=== PATIENT | female | born 1950 | race Caucasian/White ===

== ENCOUNTER → 2016-11-06 | Outpatient (CLI) | payer MEDICARE, OTHER | LOC: RAD 10:35 | PROVIDERS: ATTEND Internal Medicine Medical Oncology | DX: C34.90 Malignant neoplasm of unspecified part of unspecified bronchus or lung (principal) | CPT/HCPCS: 78815; A9552 ==

== ENCOUNTER → 2017-01-15 | Outpatient (CLI) | payer MEDICARE, OTHER ==
--- NOTE | 2017-01-15 16:03 | RADIOLOGY REPORT (SQ) ---
EXAM DESCRIPTION: CT CHEST WITH COMPLETED DATE/TIME: 01/15/2017 2:19 pm REASON FOR STUDY: LUNG CA C34.90 MALIGNANT NEOPLASM OF UNSP PART OF UNSP BRONCHUS OR L COMPARISON: 02/14/2014 TECHNIQUE: CT scan of the chest performed using helical scanning technique with dynamic intravenous contrast injection. Images reviewed with lung, soft tissue and bone windows. Reconstructed coronal and sagittal MPR images reviewed. All images stored on PACS. All CT scanners at this facility use dose modulation, iterative reconstruction, and/or weight based d osing when appropriate to reduce radiation dose to as low as reasonably achievable (ALARA). [facility]: Dose Right [facility]: CareDose [facility]: Dose Right [facility]: Teradose 4D [facility]: Periscope CONTRAST TYPE AND DOSE: 80mL Isovue 370- low osmolar. RENAL FUNCTION: Not given. RADIATION DOSE: 3.47 mGy. LIMITATIONS: None. FINDINGS: LUNGS AND PLEURA: No opacities, nodules, masses. No pneumothorax. No effusions. HILAR AND MEDIASTINAL STRUCTURES: No identified masses or abnormal nodes. HEART AND VASCULAR STRUCTURES: No aneurysm or dissection. No central pulmonary emboli. Aortic and c oronary atherosclerosis is mild to moderate. HARDWARE: None in the chest. UPPER ABDOMEN: A large gallstone is seen on image 69. THYROID AND OTHER SOFT TISSUES: No masses. No adenopathy. BONES: No significant finding. OTHER: No other significant finding. IMPRESSION: 1. There is no evidence of malignancy in the chest. 2. There is cholelithiasis. TECHNICAL DOCUMENTATION: JOB ID: [id number] Quality ID # [id number]: Final reports with documentation of one or more dose reduction techniques (e.g., Au tomated exposure control, adjustment of the mA and/or kV according to patient size, use of iterative reconstruction technique) 2010 [employer]- All Rights Reserved
== END ==
LOC: RAD 13:44
PROVIDERS: ATTEND Internal Medicine Medical Oncology
DX: C34.90 Malignant neoplasm of unspecified part of unspecified bronchus or lung (principal)
CPT/HCPCS: 71260

== ENCOUNTER 2017-06-22 10:57 | Emergency (ER) | payer MEDICARE, OTHER ==
--- NOTE | 2017-06-22 11:20 | ER Document Report ---
ED Fall - General Mode of Arrival: Medic Information source: Patient TRAVEL OUTSIDE OF THE [place] IN LAST 30 DAYS: No - HPI Patient complains to provider of: Weakness and Fall Occurred: Just prior to arrival Where: Home Context: Fell from standing Location of injury/pain: Other - see notes above <FERNANDO SHEA - Last Filed: 06/22/17 11:14> <JE SHULTZ - Last Filed: 06/22/17 16:25> - General Chief Complaint: Weakness Stated Complaint: WEAKNESS Time Seen by Provider: 06/22/17 11:03 Notes: 66 year old female with history of basal cell carcinoma and lung cancer presents to the ED complaining of weakness to the bilateral lower extremities and subsequently falling just prior to arrival. Patient reports that she was going to take the trash out when she suddenly became out of breath and fell to the ground injuring her nose. Patient had extreme difficulty pulling herself onto the couch and was unable to walk secondary to the weakness. Patient additionally reports difficulty with getting her words out. Patient denies dizziness, chest pain, headache, current shortness of breath, diarrhea, or difficulty breathing through her nose. Patient recently started a chemotherapy drug and an antidepressant 3 days ago and is concerned that she may be having a side effect of her antidepressant drug. Oncologist: Dr. Bonilla. (FERNANDO SHEA) - Related data Allergies/Adverse Reactions: codeine [Codeine] Allergy (Verified 06/22/17 14:06) Past Medical History - General Information source: Patient - Social History Smoking Status: Former Smoker Chew tobacco use (# tins/day): No Frequency of alcohol use: Occasional Drug Abuse: None Family History: None - Past Medical History Cardiac Medical History: Reports: Hx Heart Attack - 2010 Pulmonary Medical History: Reports: Hx Asthma Malignancy Medical History: Reports: Hx Lung Cancer, Hx Skin Cancer - basal cell - Immunizations Hx Diphtheria, Pertussis, Tetanus Vaccination: No <FERNANDO SHEA - Last Filed: 06/22/17 11:14> Review of Systems - Review of Systems Constitutional: No symptoms reported EENT: No symptoms reported Cardiovascular: No symptoms reported. denies: Chest pain, Dizziness Respiratory: See HPI, Short of breath Gastrointestinal: No symptoms reported. denies: Diarrhea Genitourinary: No symptoms reported Female Genitourinary: No symptoms reported Musculoskeletal: No symptoms reported Skin: No symptoms reported Hematologic/Lymphatic: No symptoms reported Neurological/Psychological: See HPI, Weakness, Speech impairment. denies: Headaches -: Yes All other systems reviewed and negative <FERNANDO SHEA - Last Filed: 06/22/17 11:14> Physical Exam <FERNANDO SHEA - Last Filed: 06/22/17 11:14> <JE SHULTZ - Last Filed: 06/22/17 16:25> - Vital signs Vitals: Pulse Resp BP Pulse Ox 80 16 125/76 96 06/22/17 11:16 06/22/17 11:16 06/22/17 11:16 06/22/17 11:16 - Notes Notes: GENERAL: Alert, interacts well. No acute distress. HEAD: See ENT below. EYES: Pupils equal, round, and reactive to light. Extraocular movements intact. ENT: Oral mucosa moist, tongue midline. Scaring to the left side of the nose consistent with basal cell carcinoma. Superficial abrasion over top. NECK: Full range of motion. Supple. Trachea midline. LUNGS: Clear to auscultation bilaterally, no wheezes, rales, or rhonchi. No respiratory distress. HEART: Regular rate and rhythm. No gallops or rubs. 2/6 systolic murmur. ABDOMEN: Soft. Non-distended. Tenderness to palpation over the RLQ. EXTREMITIES: Moves all 4 extremities spontaneously. No edema, radial and dorsalis pedis pulses 2/4 bilaterally. No cyanosis. Patient is able to ambulate , but is a little unsteady. Able to raise bilateral legs with no difficulty. NEUROLOGICAL: Alert and oriented x3. Normal speech. 5/5 tank setter strength. PSYCH: Normal affect, normal mood. SKIN: Warm, dry, normal turgor. See ENT above. (FERNANDO SHEA) Course <FERNANDO SHEA - Last Filed: 06/22/17 11:14> - Laboratory Result Diagrams: 06/22/17 12:40 06/22/17 12:40 <JE SHULTZ - Last Filed: 06/22/17 16:25> - Re-evaluation Re-evalutation: 06/22/17 15:01 CBC unremarkable, coags normal, CMP grossly unremarkable, cardiac enzymes negative, urinalysis shows moderate blood with 30 WBCs, chest x-ray and head CT do not show any acute process. EKG is nonischemic. Initially patient was slightly unsteady but this rapidly cleared, she has been able to walk back and forth to the bathroom without difficulty. Patient feels much better. On arrival patient's NIH stroke scale was 0. Symptoms of temporary difficulty speaking without any true slurring and no focal weakness not consistent with stroke or TIA. Patient will be discharged home with antibiotics for her urinary tract infection. (JE SHULTZ) - Vital Signs Vital signs: Temp Pulse Resp BP Pulse Ox 97.9 F 69 16 125/77 97 06/22/17 15:52 06/22/17 15:52 06/22/17 15:52 06/22/17 15:52 06/22/17 15:52 - Laboratory Laboratory results interpreted by me: 06/22/17 06/22/17 06/22/17 12:40 12:40 14:04 Hgb 15.6 H Seg Neutrophils % 80.0 H Lymphocytes % 12.2 L Chloride 108 H Est GFR (Non-Af Amer) 53 L Ur Leukocyte Esterase MODERATE H - EKG Interpretation by Me Additional EKG results interpreted by me: 06/22/17 15:00 EKG shows sinus rhythm rate 73, normal axis, normal intervals, no ST segment elevations or depressions, nonspecific T-wave inversions in lead aVL per my interpretation. (JE SHULTZ) Discharge <FERNANDO SHEA - Last Filed: 06/22/17 11:14> <JE SHULTZ - Last Filed: 06/22/17 16:25> - Discharge Clinical Impression: Weakness, Nose abrasion, non-infected UTI (urinary tract infection) Qualifiers: Urinary tract infection type: acute cystitis Hematuria presence: without hematuria Qualified Code(s): N30.00 - Acute cystitis without hematuria Fall Qualifiers: Encounter type: initial encounter Qualified Code(s): W19.XXXA - Unspecified fall, initial encounter Condition: Stable Disposition: HOME, SELF-CARE Additional Instructions: Today you have a urinary tract infection. Your weakness could have come from this. If you develop further weakness, falls, difficulty speaking or any new or concerning symptoms please return to the emergency department. Today did not see any signs of a stroke however if you develop the signs listed above it may indicate a stroke and you will need further testing. Prescriptions: Sulfamethoxazole/Trimethoprim [Bactrim Ds Tablet] 1 each PO BID #10 tablet Referrals: CHAD MCFADDEN DO [NO LOCAL MD] - Follow up in 1 week Scribe Attestation: 06/22/17 16:25 I personally performed the services described in the documentation, reviewed and edited the documentation which was dictated to the scribe in my presence, and it accurately records my words and actions. (JE SHULTZ) Scribe Documentation - Scribe Written by Tish:: Tish Velazquez, 06/22/2017 1126 acting as scribe for :: Bola <FERNANDO SHEA - Last Filed: 06/22/17 11:14>
[2017-06-22 12:51] LABS: PROTHROMBIN TIME 13.2 SEC (11.4-15.4)
[2017-06-22 12:52] LABS: PARTIAL THROMBOPLASTIN TIME 28.9 SEC (23.5-35.8)
[2017-06-22 12:57] LABS: ABSOLUTE BASOPHILS # (AUTO) 0.1 10^3/uL (0.0-0.2); ABSOLUTE EOSINOPHILS # (AUTO) 0.3 10^3/uL (0.0-0.6); ABSOLUTE LYMPHOCYTES (AUTO) 1.2 10^3/uL (0.5-4.7); ABSOLUTE MONOCYTES (AUTO) 0.4 10^3/uL (0.1-1.4); ABSOLUTE NEUT (AUTO) 7.9 10^3/uL (1.7-8.2); BASOPHILS % (AUTO) 0.7 % (0-2); EOSINOPHILS % (AUTO) 2.9 % (0-6); HEMATOCRIT 45.7 % (36.0-47.0); HEMOGLOBIN 15.6 g/dL (12.0-15.5); HGB HCT DIFFERENCE 1.1; LYMPHOCYTES % (AUTO) 12.2 % (13-45); MEAN CORPUSCULAR HEMOGLOBIN 30.7 pg (27.0-33.4); MEAN CORPUSCULAR HGB CONC 34.1 g/dL (32.0-36.0); MEAN CORPUSCULAR VOLUME 90 fl (80-97); MONOCYTES % (AUTO) 4.2 % (3-13); RED BLOOD COUNT 5.09 10^6/uL (3.72-5.28); RED CELL DISTRIBUTION WIDTH 13.9 % (11.5-14.0); WHITE BLOOD COUNT 9.8 10^3/uL (4.0-10.5)
[2017-06-22 13:21] LABS: ALANINE AMINOTRANSFERASE 23 U/L (9-52); ALBUMIN 4.2 g/dL (3.5-5.0); ALKALINE PHOSPHATASE 120 U/L (38-126); ANION GAP 13 (5-19); ASPARTATE AMINO TRANSFERASE 24 U/L (14-36); BILIRUBIN,DIRECT 0.4 mg/dL (0.0-0.4); BILIRUBIN,TOTAL 0.5 mg/dL (0.2-1.3); BLOOD UREA NITROGEN 16 mg/dL (7-20); CARBON DIOXIDE 24 mmol/L (22-30); CHLORIDE 108 mmol/L (98-107); CREATINE KINASE 124 U/L (30-135); CREATININE RESULT 1.04 mg/dL (0.52-1.25); GLUCOSE 95 mg/dL (75-110); POTASSIUM 4.2 mmol/L (3.6-5.0); SODIUM 144.7 mmol/L (137-145); TOTAL PROTEIN 7.4 g/dL (6.3-8.2)
--- NOTE | 2017-06-22 13:25 | RADIOLOGY REPORT (SQ) ---
EXAM DESCRIPTION: CT HEAD WITHOUT COMPLETED DATE/TIME: 06/22/2017 11:26 am REASON FOR STUDY: speech slurred, weakness COMPARISON: None. TECHNIQUE: Axial images acquired through the brain without intravenous contrast. Images reviewed wi th bone, brain and subdural windows. Images stored on PACS. All CT scanners at this facility use dose modulation, iterative reconstruction, and/or weight based d osing when appropriate to reduce radiation dose to as low as reasonably achievable (ALARA). [facility]: Dose Right [facility]: CareDose [facility]: Dose Right [facility]: Teradose 4D [facility]: [employer] RADIATION DOSE: Up-to-date CT equipment and radiation dose reduction techniques were employed. CTDIv ol: 64.6 mGy. DLP: 1163 mGy-cm. mGy. LIMITATIONS: None. FINDINGS: VENTRICLES: Prominent. CEREBRUM: No masses. No hemorrhage. No midline shift. Areas of low density in the white matter mos t likely due to chronic micro-vascular ischemic change. No evidence for acute infarction. CEREBELLUM: No masses. No hemorrhage. No alteration of density. No evidence for acute infarction. EXTRAAXIAL SPACES: Mild age-related involutional change. No fluid collections. No masses. ORBITS AND GLOBE: No intra- or extraconal masses. Normal contour of globe without masses. CALVARIUM: No fracture. PARANASAL SINUSES: No fluid or mucosal thickening. SOFT TISSUES: No mass or hematoma. OTHER: No other significant finding. IMPRESSION: MILD CHRONIC CHANGES OF ATROPHY AND MICROVASCULAR ISCHEMIA. NO ACUTE PROCESS. EVIDENCE OF ACUTE STROKE: NO. COMMENT: Pertinent positive or negative findings of the imaging study reported as a CRITICAL EXAM sweta SHULTZ DO at12:00 on 06/22/2017. Category of Critical Exam: Stroke protocol. TECHNICAL DOCUMENTATION: JOB ID: [id number] Quality ID # [id number]: Final reports with documentation of one or more dose reduction techniques (e.g., Au tomated exposure control, adjustment of the mA and/or kV according to patient size, use of iterative reconstruction technique) 2010 [employer]- All Rights Reserved
[2017-06-22 13:33] LABS: TROPONIN I < 0.012 ng/mL
--- NOTE | 2017-06-22 13:43 | RADIOLOGY REPORT (SQ) ---
EXAM DESCRIPTION: CHEST SINGLE VIEW/ portable COMPLETED DATE/TIME: 06/22/2017 1:28 pm REASON FOR STUDY: speech slurred, weakness COMPARISON: 01/15/2017 and 01/13/2016 EXAM PARAMETERS: NUMBER OF VIEWS: One view. TECHNIQUE: Single frontal radiographic view of the chest acquired. RADIATION DOSE: NA LIMITATIONS: None. FINDINGS: LUNGS AND PLEURA: No opacities, masses or pneumothorax. No pleural effusion. Overexpansio n of the lung kyle noted. MEDIASTINUM AND HILAR STRUCTURES: No masses. Contour normal. HEART AND VASCULAR STRUCTURES: Heart normal in size. Normal vasculature. BONES: No acute findings. HARDWARE: None in the chest. OTHER: No other significant finding. IMPRESSION: Nothing acute TECHNICAL DOCUMENTATION: JOB ID: [id number]
[2017-06-22 14:41] LABS: APPEARANCE,URINE SLIGHTLY-CLOUDY; BILIRUBIN,URINE NEGATIVE (NEGATIVE); GLUCOSE, URINE NEGATIVE (NEGATIVE); KETONES,URINE NEGATIVE (NEGATIVE); LEUKOCYTE ESTERASE,URINE MODERATE (NEGATIVE); NITRITE,URINE NEGATIVE (NEGATIVE); PROTEIN,URINE NEGATIVE (NEGATIVE); URINE SPECIFIC GRAVITY 1.011; UROBILINOGEN,URINE NEGATIVE mg/dL (<2.0)
--- NOTE | 2017-06-22 15:27 | EKG REPORT ---
SEVERITY:- ABNORMAL ECG - SINUS RHYTHM PROBABLE LVH WITH SECONDARY REPOL ABNRM BORDERLINE INFERIOR Q WAVES : Confirmed by: Everardo Rodrigues 22-Jun-2017 15:27:04
[2017-06-22 15:52] VITALS: BP 125/77
== END 2017-06-22 15:57 | disposition home or self-care (01) ==
LOC: ER 10:57
DX: N30.00 Acute cystitis without hematuria (principal); S00.31XA Abrasion of nose, initial encounter; R53.1 Weakness; W19.XXXA Unspecified fall, initial encounter; Y92.009 Unspecified place in unspecified non-institutional (private) residence as the place of occurrence of the external cause; I25.2 Old myocardial infarction; Z85.118 Personal history of other malignant neoplasm of bronchus and lung; Z85.828 Personal history of other malignant neoplasm of skin
CPT/HCPCS: 36415; 70450; 71010; 80053; 81001; 82550; 82553; 84484; 85025; 85610; 85730; 87086; 87088; 87186; 93005; 93010; 99285

== ENCOUNTER → 2017-11-02 | Outpatient (CLI) | payer MEDICARE, OTHER ==
--- NOTE | 2017-11-02 15:03 | RADIOLOGY REPORT (SQ) ---
EXAM DESCRIPTION: CT CHEST WITH COMPLETED DATE/TIME: 11/02/2017 1:26 pm REASON FOR STUDY: C34.90 MALIGNANT NEOPLASM OF UNSP PART OF UNSP BRONCHUS OR LUNG C34.90 MALIGNANT NEOPLASM OF UNSP PART OF UNSP BRONCHUS OR L COMPARISON: 01/15/2017 and 02/14/2014. TECHNIQUE: CT scan of the chest performed using helical scanning technique with dynamic intravenous contrast injection. Images reviewed with lung, soft tissue and bone windows. Reconstructed coronal and sagittal MPR images reviewed. All images stored on PACS. All CT scanners at this facility use dose modulation, iterative reconstruction, and/or weight based d osing when appropriate to reduce radiation dose to as low as reasonably achievable (ALARA). [facility]: Dose Right [facility]: CareDose [facility]: Dose Right [facility]: Teradose 4D [facility]: [employer] CONTRAST TYPE AND DOSE: 86 mL Isovue 370- low osmolar. RENAL FUNCTION: Creatinine 1.1. RADIATION DOSE: . LIMITATIONS: None. FINDINGS: LUNGS AND PLEURA: No opacities, nodules, masses. No pneumothorax. No effusions. HILAR AND MEDIASTINAL STRUCTURES: No identified masses or abnormal nodes. HEART AND VASCULAR STRUCTURES: No aneurysm or dissection. No central pulmonary emboli. No pericardi al effusion. HARDWARE: None in the chest. UPPER ABDOMEN: No significant findings. Limited exam. THYROID AND OTHER SOFT TISSUES: No masses. No adenopathy. BONES: No significant finding. Spinal scoliosis. OTHER: No other significant finding. IMPRESSION: NORMAL CT OF THE CHEST WITH IV CONTRAST. NO EVIDENCE OF RESIDUAL OR RECURRENT TUMOR OR METASTASIS. TECHNICAL DOCUMENTATION: JOB ID: [id number] Quality ID # 436: Final reports with documentation of one or more dose reduction techniques (e.g., Au tomated exposure control, adjustment of the mA and/or kV according to patient size, use of iterative reconstruction technique) 2010 [employer]- All Rights Reserved Reading location - IP/workstation name: [email or web address]
--- NOTE | 2017-11-02 15:11 | RADIOLOGY REPORT (SQ) ---
EXAM DESCRIPTION: CT ABDOMEN IV CONTRAST ONLY COMPLETED DATE/TIME: 11/02/2017 1:26 pm REASON FOR STUDY: C34.90 C34.90 MALIGNANT NEOPLASM OF UNSP PART OF UNSP BRONCHUS OR L COMPARISON: PET-CT dated 11/06/2016. TECHNIQUE: CT scan of the abdomen performed with intravenous and without oral contrast using helical scanning technique with dynamic intravenous contrast injection. Images reviewed with lung, soft tiss ue, and bone windows. Reconstructed coronal and sagittal MPR images reviewed. Delayed images for eval uation of the urinary system also acquired and evaluated. All images stored on PACS. All CT scanners at this facility use dose modulation, iterative reconstruc tion, and/or weight based dosing when appropriate to reduce radiation dose to as low as reasonably ac hievable (ALARA). [facility]: Dose Right [facility]: CareDose [facility]: Dose Right [facility]: Teradose 4D [facility]: [employer] CONTRAST TYPE AND DOSE: contrast/concentration: Isovue 370.00 mg/ml; Total Contrast Delivered: 56.0 ml; Total Saline Delivered: 65.0 ml RENAL FUNCTION: Creatinine 1.1. RADIATION DOSE: CT Rad equipment meets quality standard of care and radiation dose reduction techniq ues were employed. CTDIvol: 4.4 - 4.7 mGy. DLP: 436 mGy-cm. . LIMITATIONS: None. FINDINGS: LOWER CHEST: No significant findings. No nodules or infiltrates. LIVER: Normal size. No masses. No dilated ducts. SPLEEN: Normal size. No focal lesions. PANCREAS: No masses. No significant calcifications. No adjacent inflammation or peripancreatic fluid collections. Pancreatic duct not dilated. GALLBLADDER: Gallstones. No inflammatory changes to suggest cholecystitis. ADRENAL GLANDS: No significant masses or asymmetry. RIGHT KIDNEY AND URETER: No solid masses. Large calculus filling the renal pelvis, measuring 1.8 x 3.4 cm. Average Hounsfield units 1,250. Smaller calyceal calculi. Cortical thinning. No hydronep hrosis or hydroureter. LEFT KIDNEY AND URETER: No solid masses. No significant calcifications. No hydronephrosis or hydr oureter. AORTA AND VESSELS: No aneurysm. No dissection. Renal arteries, SMA, celiac without stenosis. RETROPERITONEUM: No retroperitoneal adenopathy, hemorrhage or masses. BOWEL AND PERITONEAL CAVITY: No masses or inflammatory changes. No free fluid or peritoneal masses. APPENDIX: Not visualized. ABDOMINAL WALL: No masses. No hernias. BONES: No significant or acute findings. Spinal scoliosis. OTHER: No other significant finding. IMPRESSION: 1. LARGE STAGHORN CALCULUS IN THE RIGHT KIDNEY. SIMILAR TO PRIOR PET-CT. 2. GALLSTONE. 3. NO EVIDENCE OF ADENOPATHY OR METASTASIS. TECHNICAL DOCUMENTATION: JOB ID: [id number] Quality ID # 436: Final reports with documentation of one or more dose reduction techniques (e.g., Au tomated exposure control, adjustment of the mA and/or kV according to patient size, use of iterative reconstruction technique) 2010 [employer]- All Rights Reserved Reading location - IP/workstation name: [email or web address]
== END ==
LOC: RAD 13:18
PROVIDERS: ATTEND Internal Medicine Medical Oncology
DX: C34.90 Malignant neoplasm of unspecified part of unspecified bronchus or lung (principal)
CPT/HCPCS: 71260; 74160; 82565

== ENCOUNTER → 2018-05-18 | Outpatient (CLI) | payer MEDICARE, OTHER ==
--- NOTE | 2018-05-18 10:30 | RADIOLOGY REPORT (SQ) ---
EXAM DESCRIPTION: CHEST PA/LATERAL COMPLETED DATE/TIME: 05/18/2018 9:52 am REASON FOR STUDY: BROCHIOALVEOLAR CARCINOMA,UNSPECIFIED LATERALITY,FACIAL BASAL CELL CANCER COMPARISON: 06/28/2017 EXAM PARAMETERS: NUMBER OF VIEWS: two views TECHNIQUE: Digital Frontal and Lateral radiographic views of the chest acquired. RADIATION DOSE: NA LIMITATIONS: none FINDINGS: LUNGS AND PLEURA: There is hyperexpansion. No consolidation or effusions. No discrete pu lmonary nodules. MEDIASTINUM AND HILAR STRUCTURES: No masses or contour abnormalities. HEART AND VASCULAR STRUCTURES: Heart normal size. No evidence for failure. BONES: No acute findings. HARDWARE: None in the chest. OTHER: No other significant finding. IMPRESSION: Stable two-view chest. Hyperexpansion. TECHNICAL DOCUMENTATION: JOB ID: [id number] [employer]- All Rights Reserved Reading location - IP/workstation name: [email or web address]
== END ==
LOC: OD 09:39
PROVIDERS: ATTEND Internal Medicine Medical Oncology
DX: C44.310 Basal cell carcinoma of skin of unspecified parts of face (principal); C34.90 Malignant neoplasm of unspecified part of unspecified bronchus or lung
CPT/HCPCS: 71046

== ENCOUNTER → 2018-06-21 | Outpatient (CLI) | payer MEDICARE, OTHER ==
--- NOTE | 2018-06-21 14:07 | RADIOLOGY REPORT (SQ) ---
EXAM DESCRIPTION: CT CHEST WITH COMPLETED DATE/TIME: 06/21/2018 10:47 am REASON FOR STUDY: MALIGNANT NEOPLASM OF UNSP PART OF UNSP BRONCHUS OR LUNG C34.90 MALIGNANT NEOPLAS M OF UNSP PART OF UNSP BRONCHUS OR L COMPARISON: 11/02/2017 and 01/15/2017. TECHNIQUE: CT scan of the chest performed using helical scanning technique with dynamic intravenous contrast injection. Images reviewed with lung, soft tissue and bone windows. Reconstructed coronal and sagittal MPR and MIP images reviewed. All images stored on PACS. All CT scanners at this facility use dose modulation, iterative reconstruction, and/or weight based d osing when appropriate to reduce radiation dose to as low as reasonably achievable (ALARA). [facility]: Dose Right [facility]: CareDose [facility]: Dose Right [facility]: Teradose 4D [facility]: [employer] CONTRAST TYPE AND DOSE: contrast/concentration: Isovue 350.00 mg/ml; Total Contrast Delivered: 80.0 ml; Total Saline Delivered: 55.0 ml RENAL FUNCTION: BUN 16 creatinine 1.1. RADIATION DOSE: CT Rad equipment meets quality standard of care and radiation dose reduction techniq ues were employed. CTDIvol: 3.2 mGy. DLP: 127 mGy-cm. . LIMITATIONS: None. FINDINGS: LUNGS AND PLEURA: Emphysematous changes. New subpleural nodule in the superior segment of the right lower lobe, measuring 5.4 mm (Axial series 4, image 49). No other nodules or masses. No pleural effusion. No pleural thickening or calcification. HILAR AND MEDIASTINAL STRUCTURES: No identified masses or abnormal nodes. HEART AND VASCULAR STRUCTURES: No aneurysm or dissection. No central pulmonary emboli. No pericardi al effusion. HARDWARE: None in the chest. UPPER ABDOMEN: No significant findings. Limited exam. THYROID AND OTHER SOFT TISSUES: No masses. No adenopathy. BONES: No significant finding. OTHER: No other significant finding. IMPRESSION: EMPHYSEMATOUS CHANGES. NEW 5.4 MM NODULE IN THE SUPERIOR SEGMENT OF THE RIGHT LOWER LOB E. AT THIS TIME THE NODULE IS TOO SMALL FOR PERCUTANEOUS BIOPSY AND LIKELY TOO SMALL TO BE DETECTABL E ON PET SCAN. RECOMMEND FOLLOW-UP CT IN 3 MONTHS. TECHNICAL DOCUMENTATION: JOB ID: [id number] Quality ID # 436: Final reports with documentation of one or more dose reduction techniques (e.g., Au tomated exposure control, adjustment of the mA and/or kV according to patient size, use of iterative reconstruction technique) 2010 [employer]- All Rights Reserved Reading location - IP/workstation name: [email or web address]
== END ==
LOC: RAD 10:12
PROVIDERS: ATTEND Internal Medicine Medical Oncology
DX: C34.90 Malignant neoplasm of unspecified part of unspecified bronchus or lung (principal)
CPT/HCPCS: 71260

== ENCOUNTER → 2018-09-04 | Outpatient (CLI) | payer MEDICARE, OTHER ==
--- NOTE | 2018-09-06 07:33 | RADIOLOGY REPORT (SQ) ---
EXAM DESCRIPTION: PET CT SKULL/THIGH COMPLETED DATE/TIME: 09/04/2018 9:24 pm REASON FOR STUDY: BRONCHIOALVEOLAR CARCINOMA C34.90 MALIGNANT NEOPLASM OF UNSP PART OF UNSP BRONCHU S OR L COMPARISON: CT chest 06/21/2018 CT chest abdomen pelvis 10/23/2017 CT chest 01/15/2017 PET-CT 11/06/2016 RADIONUCLIDE AND DOSE: 8.6 mCi F18 FDG The route of agent administration: Intravenous FASTING BLOOD SUGAR: 90 mg/dl CONTRAST TYPE AND DOSE: No CT contrast given. TECHNIQUE: Blood glucose level was verified. Above dose of FDG was injected intravenously. 2-D seg mented attenuation correction images were obtained from the base of the skull to the midthighs. Nonc ontrast CT images were obtained for attenuation correction and fusion with emission images. CT image s were performed without oral or intravenous contrast and are not sensitive for parenchymal lesions. A series of overlapping emission PET images were obtained. Images reviewed and manipulated at [facility] work station by the radiologist. Images stored on PACS. LIMITATIONS: None. FINDINGS: HEAD AND NECK: No areas of abnormal metabolic activity in the soft tissues of the head and neck. CHEST: No areas of abnormal metabolic activity in the chest. A 5 mm noncalcified smooth round subpleural nodule is present in the superior segment right lower lob e image 66. This is unchanged from 06/04/2018. This is below the threshold for detection of metabol ic activity because of its small size. Recommend follow-up as per Fleischner criteria. ABDOMEN AND PELVIS: No areas of abnormal metabolic activity in the abdomen or pelvis. Expected physi ologic activity is present in the genitourinary system and bowel. PROXIMAL LOWER EXTREMITIES: No areas of abnormal metabolic activity in the soft tissues of the lower extremities. BONES: No abnormal metabolic activity in the visualized skeleton. ADDITIONAL CT FINDINGS: Thoracic scoliosis convex rightward. 4 cm diameter ascending thoracic aorta. 3 x 2 cm staghorn calculus right renal pelvis. Calcified stones in the gallbladder without gallbla dder wall thickening OTHER: No other significant findings. IMPRESSION: No increased uptake worrisome for recurrent malignancy 5 mm smooth round noncalcified subpleural nodule superior segment right lower lobe. Consider follow- up as per Fleischner criteria COMMENT: FLEISCHNER CRITERIA FOR FOLLOW-UP OF PULMONARY NODULES Incidentally detected new nodules in persons 35 or older. HIGH RISK: History of smoking or other known risk factors. <6mm single solid nodule: LOW RISK: no routine followup. HIGH RISK: optional CT 12 mo. TECHNICAL DOCUMENTATION: JOB ID: [id number] [employer]- All Rights Reserved Reading location - IP/workstation name: [email or web address]
== END ==
LOC: RAD 16:09
PROVIDERS: ATTEND Internal Medicine Medical Oncology
DX: R91.1 Solitary pulmonary nodule (principal)
CPT/HCPCS: 78815; A9552

== ENCOUNTER 2019-07-05 07:58 | Day surgery (SDC) | payer MEDICARE, OTHER ==
[~2019-07-05 07:58] MED LIST: KETOROLAC TROMETHAMINE 0.45% 4 DROP/0.4 ML DROPERETTE OS PRN; LIDOCAINE 1% INJ-PF (10 MG/ML) 30 ML SDV ONE
[2019-07-05] MEDS ORDERED: ONDANSETRON HCL INJ/PF 4 MG/2 ML SDV ONE (08:24)
[2019-07-05] MEDS ORDERED: FENTANYL CITRATE INJ/PF 100 MCG/2 ML AMPUL ONE (08:25)
[2019-07-05] MEDS ORDERED: MIDAZOLAM 2 MG/2 ML INJ ONE ×2 (08:25→09:59)
[2019-07-05] MEDS: TROPICAMIDE 1% OPH SOLN 15 ML OS PRN ×3 (08:31→08:55)
[2019-07-05] MEDS: TETRACAINE HCL 0.5% OPH SOLN 4 ML OS PRN ×3 (08:31→09:19)
[2019-07-05] MEDS: CYCLOPENTOLATE 0.2%/PHENYLEPHRINE 1% OPH SOLN 2 ML OS PRN ×3 (08:32→08:55)
[2019-07-05] MEDS: BESIFLOXACIN HCL 0.6% OPH SUSP 5 ML BOTTLE OS PRN ×5 (08:32→09:50)
[2019-07-05] MEDS: LIDOCAINE 1%/PHENYLEPHRINE 1.5% 1 ML VIAL ONE ×2 (09:35)
[2019-07-05] MEDS: CHONDR SU A NA/HYALUR INTRAOC KIT (SURGICARE) ONE ×2 (09:35)
[2019-07-05] MEDS: EPINEPHRINE INJ/PF 1 MG/1 ML AMPULE ONE ×2 (09:35)
[2019-07-05] MEDS: DORZOLAMIDE HCL 2%/TIMOLOL MALEAT 0.5% OPH SOLN 10 ML OS PRN ×3 (09:49→09:50)
[2019-07-05] MEDS: TOBRAMYCIN SULFATE/DEXAMETH OPH OINTMENT 3.5 GM ONE ×3 (09:49→09:50)
[2019-07-05] MEDS ORDERED: DIPHENHYDRAMINE HCL 50 MG/ML VIAL ONE (09:58)
== END 2019-07-05 10:30 | disposition home or self-care (01) ==
LOC: SC 07:58
PROVIDERS: ATTEND Ophthalmology
DX: H25.12 Age-related nuclear cataract, left eye (principal); J44.9 Chronic obstructive pulmonary disease, unspecified; I10 Essential (primary) hypertension; Z85.828 Personal history of other malignant neoplasm of skin; Z85.118 Personal history of other malignant neoplasm of bronchus and lung; Z79.51 Long term (current) use of inhaled steroids; Z87.891 Personal history of nicotine dependence; R06.02 Shortness of breath; I25.2 Old myocardial infarction; Z99.81 Dependence on supplemental oxygen
CPT/HCPCS: 66984; 00142; J2250; J3490 ×3; A9270 ×2; J1200; J0171; J3010; J2405; J2370; 142

== ENCOUNTER 2019-07-17 08:36 | Day surgery (SDC) | payer MEDICARE, OTHER ==
[~2019-07-17 08:36] MED LIST changes: +KETOROLAC TROMETHAMINE 0.45% 4 DROP/0.4 ML DROPERETTE OD PRN; -KETOROLAC TROMETHAMINE 0.45% 4 DROP/0.4 ML DROPERETTE OS PRN; -LIDOCAINE 1% INJ-PF (10 MG/ML) 30 ML SDV ONE; +MIDAZOLAM 2 MG/2 ML INJ ONE
[2019-07-17] MEDS: TROPICAMIDE 1% OPH SOLN 15 ML OD PRN ×3 (10:07→10:26)
[2019-07-17] MEDS: TETRACAINE HCL 0.5% OPH SOLN 4 ML OD PRN ×4 (10:07→10:29)
[2019-07-17] MEDS: CYCLOPENTOLATE 0.2%/PHENYLEPHRINE 1% OPH SOLN 2 ML OD PRN ×3 (10:08→10:26)
[2019-07-17] MEDS: BESIFLOXACIN HCL 0.6% OPH SUSP 5 ML BOTTLE OD PRN ×4 (10:08→10:48)
[2019-07-17] MEDS: CHONDR SU A NA/HYALUR INTRAOC KIT (SURGICARE) ONE ×2 (10:37)
[2019-07-17] MEDS: LIDOCAINE 1%/PHENYLEPHRINE 1.5% 1 ML VIAL ONE ×2 (10:37)
[2019-07-17] MEDS: EPINEPHRINE INJ/PF 1 MG/1 ML AMPULE ONE ×2 (10:37)
[2019-07-17] MEDS: TOBRAMYCIN SULFATE/DEXAMETH OPH OINTMENT 3.5 GM ONE ×2 (10:48)
[2019-07-17] MEDS: DORZOLAMIDE HCL 2%/TIMOLOL MALEAT 0.5% OPH SOLN 10 ML OD PRN ×2 (10:48)
== END 2019-07-17 11:23 | disposition home or self-care (01) ==
LOC: SC 08:36
PROVIDERS: ATTEND Ophthalmology
DX: H25.11 Age-related nuclear cataract, right eye (principal); Z98.42 Cataract extraction status, left eye; I10 Essential (primary) hypertension; J44.9 Chronic obstructive pulmonary disease, unspecified; Z79.51 Long term (current) use of inhaled steroids; Z79.899 Other long term (current) drug therapy; Z87.891 Personal history of nicotine dependence; Z88.5 Allergy status to narcotic agent; Z85.118 Personal history of other malignant neoplasm of bronchus and lung; Z85.828 Personal history of other malignant neoplasm of skin
CPT/HCPCS: 66984; 00142; J2250; J3490 ×2; A9270 ×2; J0171; J2370; 142

== ENCOUNTER → 2019-09-06 | Outpatient (CLI) | payer MEDICARE, OTHER ==
--- NOTE | 2019-09-06 13:13 | RADIOLOGY REPORT (SQ) ---
EXAM DESCRIPTION: CT CHEST WITH COMPLETED DATE/TIME: 09/06/2019 9:13 am REASON FOR STUDY: LUNG CANCER C34.90 MALIGNANT NEOPLASM OF UNSP PART OF UNSP BRONCHUS OR L COMPARISON: CT chest 01/15/2017, 11/02/2017, 06/21/2018 PET-CT 09/04/2018, 11/06/2016 TECHNIQUE: CT scan of the chest performed using helical scanning technique with dynamic intravenous contrast injection. Images reviewed with lung, soft tissue and bone windows. Reconstructed coronal and sagittal MPR and MIP images reviewed. All images stored on PACS. All CT scanners at this facility use dose modulation, iterative reconstruction, and/or weight based d osing when appropriate to reduce radiation dose to as low as reasonably achievable (ALARA). [facility]: Dose Right [facility]: CareDose [facility]: Dose Right [facility]: Teradose 4D [facility]: Saborstudio CONTRAST TYPE AND DOSE: contrast/concentration: Isovue 350.00 mg/ml; Total Contrast Delivered: 80.0 ml; Total Saline Delivered: 55.0 ml RENAL FUNCTION: Creatinine 1.0 RADIATION DOSE: CT Rad equipment meets quality standard of care and radiation dose reduction techniq ues were employed. CTDIvol: 3.0 mGy. DLP: 122 mGy-cm. . LIMITATIONS: None. FINDINGS: LUNGS AND PLEURA: Diffuse changes of obstructive lung disease. No pulmonary nodules. No pleural effusion. No pneumothorax. Airways are patent. The 5 mm smooth round noncalcified nodule described in the superior segment right lower lobe 9 is no longer identified. HILAR AND MEDIASTINAL STRUCTURES: No identified masses or abnormal nodes. HEART AND VASCULAR STRUCTURES: Ascending thoracic aorta 4 cm in diameter, stable. Descending thoraci c aorta 2.4 cm in diameter. 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 HARDWARE: None in the chest. UPPER ABDOMEN: No significant findings. Limited exam. THYROID AND OTHER SOFT TISSUES: No masses. No adenopathy. BONES: Mild convex rightward lower thoracic/ lumbar curvature OTHER: No other significant finding. IMPRESSION: Obstructive lung disease. Otherwise unremarkable. TECHNICAL DOCUMENTATION: JOB ID: [id number] Quality ID # 436: Final reports with documentation of one or more dose reduction techniques (e.g., Au tomated exposure control, adjustment of the mA and/or kV according to patient size, use of iterative reconstruction technique) 2010 [employer]- All Rights Reserved Reading location - IP/workstation name: [email or web address]
== END ==
LOC: RAD 08:48
PROVIDERS: ATTEND Internal Medicine Hematology & Oncology
DX: C34.90 Malignant neoplasm of unspecified part of unspecified bronchus or lung (principal)
CPT/HCPCS: 71260; 82565

== ENCOUNTER → 2020-01-01 | Outpatient (CLI) | payer MEDICARE, OTHER ==
--- NOTE | 2020-01-01 11:49 | RADIOLOGY REPORT (SQ) ---
EXAM DESCRIPTION: CT CHEST WITH IMAGES COMPLETED DATE/TIME: 01/01/2020 11:09 am REASON FOR STUDY: (C34.90)MALIGNANT NEOPLASM OF UNSP PART OF UNSP BRONCHUS OR LUNG C34.90 MALIGNANT NEOPLASM OF UNSP PART OF UNSP BRONCHUS OR L COMPARISON: PET-CT 09/04/2018 CT chest 11/02/2017, 06/21/2018, 08/27/2019 TECHNIQUE: CT scan of the chest performed using helical scanning technique with dynamic intravenous contrast injection. Images reviewed with lung, soft tissue and bone windows. Reconstructed coronal and sagittal MPR and MIP images reviewed. All images stored on PACS. All CT scanners at this facility use dose modulation, iterative reconstruction, and/or weight based d osing when appropriate to reduce radiation dose to as low as reasonably achievable (ALARA). [facility]: Dose Right [facility]: CareDose [facility]: Dose Right [facility]: Teradose 4D [facility]: Luristic CONTRAST TYPE AND DOSE: contrast/concentration: Isovue 350.00 mg/ml; Total Contrast Delivered: 65.0 ml; Total Saline Delivered: 44.7 ml RENAL FUNCTION: Creatinine 0.9 RADIATION DOSE: CT Rad equipment meets quality standard of care and radiation dose reduction techniq ues were employed. CTDIvol: 6.7 mGy. DLP: 262 mGy-cm. . LIMITATIONS: None. FINDINGS: LUNGS AND PLEURA: Too numerous to count less than 5 mm alveolar nodules scattered througho ut the periphery of both lungs, new compared to 09/06/2019. Finding is worrisome for either metastati c disease or postinflammatory/postinfectious change. No pleural effusion. No pneumothorax. HILAR AND MEDIASTINAL STRUCTURES: No identified masses or abnormal nodes. HEART AND VASCULAR STRUCTURES: 4 cm diameter ascending thoracic aorta, stable. No dissection. No ce ntral pulmonary emboli. No pericardial effusion. HARDWARE: None in the chest. UPPER ABDOMEN: No significant findings. Limited exam. THYROID AND OTHER SOFT TISSUES: No masses. No adenopathy. BONES: No significant finding. OTHER: No other significant finding. IMPRESSION: Since 09/06/2019, patient has developed multiple tiny less than 5 mm ill-defined alveolar nodules throughout both lungs. TECHNICAL DOCUMENTATION: JOB ID: [id number] Quality ID # [id number]: Final reports with documentation of one or more dose reduction techniques (e.g., Au tomated exposure control, adjustment of the mA and/or kV according to patient size, use of iterative reconstruction technique) 2010 [employer]- All Rights Reserved Reading location - IP/workstation name: [email or web address]
== END ==
LOC: RAD 10:31
PROVIDERS: ATTEND Internal Medicine Hematology & Oncology
DX: C34.90 Malignant neoplasm of unspecified part of unspecified bronchus or lung (principal); R91.8 Other nonspecific abnormal finding of lung field
CPT/HCPCS: 71260; 82565

== ENCOUNTER → 2020-07-04 | Outpatient (CLI) | payer MEDICARE, OTHER ==
--- NOTE | 2020-07-04 14:58 | RADIOLOGY REPORT (SQ) ---
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 Images reviewed with lung, soft tissue and bone windows. Reconstructed coronal and sagittal MPR and MIP images reviewed. All images stored on PACS. All CT scanners at this facility use dose modulation, iterative reconstruction, and/or weight based d osing when appropriate to reduce radiation dose to as low as reasonably achievable (ALARA). [facility]: Dose Right [facility]: CareDose [facility]: Dose Right [facility]: Teradose 4D [facility]: Inside Secure CONTRAST TYPE AND DOSE: contrast/concentration: Isovue 350.00 mmol/ml; Total Contrast Delivered: 80. 0 ml; Total Saline Delivered: 45.2 ml RENAL FUNCTION: Creatinine 1.1 RADIATION DOSE: CT Rad equipment meets quality standard of care and radiation dose reduction techniq ues were employed. CTDIvol: 3.5 mGy. DLP: 145 mGy-cm. . LIMITATIONS: None. FINDINGS: LUNGS AND PLEURA: Centrilobular emphysema. There is a new slightly irregular 7 mm nodule in the left lower lobe posteriorly on image 92. No other pulmonary nodules. No infiltrate or effusi on. HILAR AND MEDIASTINAL STRUCTURES: No identified masses or abnormal nodes. HEART AND VASCULAR STRUCTURES: 42 mm aneurysm of the ascending aorta. No dissection. No central pul monary emboli. HARDWARE: None in the chest. UPPER ABDOMEN: No significant findings. Limited exam. THYROID AND OTHER SOFT TISSUES: No masses. No adenopathy. BONES: No significant finding. OTHER: No other significant finding. IMPRESSION: 1. There is a new slightly irregular 7 mm nodule in the left lower lobe. Cannot exclud e a metastatic lesion. Could be inflammatory. 2. Centrilobular emphysema. 3. 42 mm aneurysm of the ascending aorta. TECHNICAL DOCUMENTATION: JOB ID: [id number] Quality ID # [id number]: Final reports with documentation of one or more dose reduction techniques (e.g., Au tomated exposure control, adjustment of the mA and/or kV according to patient size, use of iterative reconstruction technique) 2010 [employer]- All Rights Reserved Reading location - IP/workstation name: [email or web address]
--- OUTSIDE RECORDS SUMMARY | 2020-07-05 15:13 | XMS REPORT ---
:1950 Author [facility] Address [facility] [address] [place] [id number] Care Team Providers Name Role Phone Juana Attending Clinician Unavailable Britney Galvez Attending Clinician Unavailable Nicolas Attending Clinician Unavailable Nicolas Attending Clinician Unavailable Allergies, Adverse Reactions, Alerts Allergy Name Allergy Status Severity Reaction(s) Onset Inactive Treat ing Comments Type Date Date Clinician PENICILLIN Drug Active U 2018-06 allergy 00:00:0 0 codeine Allergy Active to Drug (Finding) Medications Ordered Filled Start Stop Current Ordering Indication Dosage Frequency Signature Comments Components Medication Medication Date Date Medication? Clinician (SIG) Name Name Advair Yes 1 Diskus Albuterol Yes 2 Sulfate HFA Ambien Yes 1 Amiodarone Yes 1 HCl Folic Acid Yes 1 Spiriva Yes 1 HandiHaler Toprol XL Yes 1 amLODIPine 2018- 1 Besy-Benaze 07-10 pril HCl 10:12 :22 Valium 2018- 07-10 10:12 :13 Problems Condition Condition Condition Status Onset Resolution Last Treatin g Comments Name Details Category Date Date Treatment Clinician Date Basal cell Basal cell Diagnosis active carcinoma carcinoma of face of face Procedures Procedure Date / Time Performed Performing Clinician Phil josé Annual Wellness Visit, Subsequent 2020-06-07 10:30:00 OFFICE/OUTPATIENT VISIT EST 2019-05-30 15:45:00 OFFICE/OUTPATIENT VISIT EST 2019-02-09 10:00:00 OFFICE/OUTPATIENT VISIT EST 2017-06-29 16:00:00 hysterectomy 1979-08-23 00:00:00 teeth implant appendectomy tonsillectomy basal cell face UGI bleed with resection Results Test Description Test Time Test Comments Text Results Atomic Results Result Comments CBC (INCLUDES DIFF/PLT) 2020-03-07 12:07:00 Test Item Value Reference Range Comments ABSOLUTE BASOPHILS (test code = 30602021) 73 cells/uL 0-200 HEMOGLOBIN (test code = 20397698) 14.9 g/dL 11.7-15.5 BASOPHILS (test code = 62412793) 0.8 % ABSOLUTE MONOCYTES (test code = 29669677) 455 cells/uL 200-95 0 MONOCYTES (test code = 98051670) 5.0 % NEUTROPHILS (test code = 74599406) 75.1 % LYMPHOCYTES (test code = 94364992) 17.1 % RDW (test code = 82400198) 15.9 % 11.0-15.0 ABSOLUTE NEUTROPHILS (test code = 71400824) 6834 cells/uL 1500 -7800 PLATELET COUNT (test code = 31766324) 201 Thousand/uL 140-400 MPV (test code = 86389004) 10.0 fL 7.5-12.5 WHITE BLOOD CELL COUNT (test code = 86151889) 9.1 Thousand/uL 3. 8-10.8 MCV (test code = 95951889) 89.7 fL 80.0-100.0 HEMATOCRIT (test code = 63280244) 46.1 % 35.0-45.0 ABSOLUTE LYMPHOCYTES (test code = 70715243) 1556 cells/uL 850- 3900 MCHC (test code = 44932320) 32.3 g/dL 32.0-36.0 RED BLOOD CELL COUNT (test code = 53120843) 5.14 Million/uL 3.80 -5.10 ABSOLUTE EOSINOPHILS (test code = 99527150) 182 cells/uL 15-5 00 EOSINOPHILS (test code = 24183499) 2.0 % MCH (test code = 77139251) 29.0 pg 27.0-33.0 [id number] 12:54:00 Test Item Value Reference Range Comments WBC (test code = WBC) 10.0000 4.0000-10.0000 Lymphocytes % (test code = Lymphocytes %) 17.2000 % 22.400 0-43.6000 MID% (test code = MID%) 4.7000 % 1.2000-11.2000 Neutrophils % (test code = Neutrophils %) 78.1000 % 48.900 0-69.9000 Lymphocytes (test code = Lymphocytes) 1.7000 1.2000-3.2 000 MID (test code = MID) 0.5000 0.1000-1.1000 Neutrophils (test code = Neutrophils) 7.8000 1.5000-6.7 000 RBC (test code = RBC) 4.7900 3.7000-4.9000 HGB (test code = HGB) 14.4000 g/dL 11.2000-18.0000 HCT (test code = HCT) 45.3000 % 34.0000-44.0000 MCV (test code = MCV) 94.5000 fL 80.0000-94.0000 MCH (test code = MCH) 30.0000 pg 27.0000-34.0000 MCHC (test code = MCHC) 31.8000 g/dL 31.5000-36.0000 RDW (test code = RDW) 15.1999 11.0000-18.0000 PLT (test code = PLT) 204.0000 140.0000-440.0000 MPV (test code = MPV) 8.1999 fL 6.8000-10.6000 [id number] 12:54:00 Test Item Value Reference Range Comments Creatinine (test code = Creatinine) 1.0000 mg/dL 0.5000-1.200 0 Cr Clearance (Est) (test code = Cr 32.9600 75.0000-115.0 000 Clearance (Est)) Glucose (test code = Glucose) 116.0000 mg/dL 70.0000-118.0000 BUN (test code = BUN) 13.0000 mg/dL 7.0000-22.0000 Sodium (test code = Sodium) 140.0000 mmol/L 128.0000-145.0000 Potassium (test code = Potassium) 3.7000 mmol/L 3.6000-5.1000 Chloride (test code = Chloride) 105.0000 mmol/L 96.0000-108.0000 CO2 (test code = CO2) 30.0000 mmol/L 18.0000-33.0000 Calcium (test code = Calcium) 9.9000 mg/dL 8.0000-10.3000 Alkaline Phosphatase (test code = Alkaline 80.0000 42.00 00-141.0000 Phosphatase) ALT (SGPT) (test code = ALT (SGPT)) 11.0000 10.0000-47.0 000 AST (SGOT) (test code = AST (SGOT)) 14.0000 11.0000-37.0 000 Bilirubin, Total (test code = Bilirubin, 0.5000 mg/dL 0.0000- 1.6000 Total) Albumin (test code = Albumin) 4.2000 g/dL 3.5000-5.5000 Protein, Total (test code = Protein, 6.6000 g/dL 6.4000-8.10 00 Total) eGFR -Peruvian (test code = eGFR 66.0000 60.0000- 200.0000 -Peruvian) eGFR Kvm-Iyorkgg-Tiyhswuf (test code = 55.0000 60.0000-2 00.0000 eGFR Kje-Hgvxlnx-Augssuwv) [id number] 14:34:00 Test Item Value Reference Range Comments Creatinine (test code = Creatinine) 0.9700 mg/dL 0.5700-1.000 0 Cr Clearance (Est) (test code = Cr 35.4800 75.0000-115.0 000 Clearance (Est)) Glucose (test code = Glucose) 93.0000 mg/dL 65.0000-99.0000 BUN (test code = BUN) 15.0000 mg/dL 8.0000-27.0000 eGFR Pme-Nidsxsb-Snubomnt (test code = 59.0000 eGFR Njx-Lyadbeb-Apmgvqtl) eGFR -Peruvian (test code = eGFR 68.0000 -Peruvian) BUN/Creat Ratio (test code = BUN/Creat 15.0000 12.0000-2 8.0000 Ratio) Sodium (test code = Sodium) 141.0000 mmol/L 134.0000-144.0000 Potassium (test code = Potassium) 4.0000 mmol/L 3.5000-5.2000 Chloride (test code = Chloride) 102.0000 mmol/L 96.0000-106.0000 CO2 (test code = CO2) 20.0000 mmol/L 20.0000-29.0000 Calcium (test code = Calcium) 9.8000 mg/dL 8.7000-10.3000 Protein, Total (test code = Protein, 7.0000 g/dL 6.0000-8.50 00 Total) Albumin (test code = Albumin) 4.5000 g/dL 3.5000-4.8000 Globulin (test code = Globulin) 2.5000 g/dL 1.5000-4.5000 A/G Ratio (test code = A/G Ratio) 1.8000 1.2000-2.2000 Bilirubin, Total (test code = Bilirubin, 0.6000 mg/dL 0.0000- 1.2000 Total) Alkaline Phosphatase (test code = Alkaline 90.0000 39.00 00-117.0000 Phosphatase) AST (SGOT) (test code = AST (SGOT)) 20.0000 0.0000-40.00 00 ALT (SGPT) (test code = ALT (SGPT)) 12.0000 0.0000-32.00 00 Vitamin D (25-Hydroxy) (test code = 37.3000 ng/mL 30.0000-100. 0000 Vitamin D (25-Hydroxy)) [id number] 14:21:00 Test Item Value Reference Range Comments WBC (test code = WBC) 12.7000 4.0000-10.0000 Lymphocytes % (test code = Lymphocytes %) 15.5000 % 22.400 0-43.6000 MID% (test code = MID%) 4.6000 % 1.2000-11.2000 Neutrophils % (test code = Neutrophils %) 79.9000 % 48.900 0-69.9000 Lymphocytes (test code = Lymphocytes) 1.9000 1.2000-3.2 000 MID (test code = MID) 0.6000 0.1000-1.1000 Neutrophils (test code = Neutrophils) 10.2000 1.5000-6.7 000 RBC (test code = RBC) 5.2300 3.7000-4.9000 HGB (test code = HGB) 15.9000 g/dL 11.2000-18.0000 HCT (test code = HCT) 47.8000 % 34.0000-44.0000 MCV (test code = MCV) 91.5000 fL 80.0000-94.0000 MCH (test code = MCH) 30.5000 pg 27.0000-34.0000 MCHC (test code = MCHC) 33.3000 g/dL 31.5000-36.0000 RDW (test code = RDW) 15.1000 11.0000-18.0000 PLT (test code = PLT) 214.0000 140.0000-440.0000 MPV (test code = MPV) 8.1000 fL 6.8000-10.6000 Assessments Condition Name Status Diagnosis Date Treating Clinici an Encntr for general adult medical exam w/o Active abnormal findings Encntr screen mammogram for malignant Active neoplasm of breast Malignant neoplasm of unsp part of unsp Active bronchus or lung Major depressive disorder, recurrent, Active unspecified Generalized anxiety disorder Active Malignant neoplasm of unsp part of unsp Active bronchus or lung Abnormal weight loss Active Body mass index (BMI) 19.9 or less, adult Active Generalized anxiety disorder Active Chronic obstructive pulmonary disease, Active unspecified 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 Body mass index (BMI) 19 or less, adult Active Acute cystitis without hematuria Active Slurred speech Active Weakness Active Body mass index (BMI) 19 or less, adult Active Encounters Start End Encounter Admission Attending Care Care Encounter Date/Time Date/Time Type Type Clinicians Facility Department ID 2020-06-07 2020-06-07 Outpatient Juana [facility] [id number] 10:30:00 10:30:00 [facility] [id number] and [id number] Multispecial [id number] ty Clini 2020-06-07 2020-06-07 Outpatient Deanna Arellanoshayne n [id number] 00:00:00 00:00:00 [facility] 2020-06-05 2020-06-05 Outpatient [facility] Adan n [id number] 00:00:00 00:00:00 [facility] 2020-01-09 2020-01-09 Dr. Britney Tan, [facility] [id number] 00:00:00 00:00:00 Nika Maher [facility] 2020-01-08 2020-01-08 Outpatient [facility] n [id number] 00:00:00 00:00:00 [facility] 2019-12-15 2019-12-15 Outpatient [facility] n [id number] 00:00:00 00:00:00 [facility] 2019-09-08 2019-09-08 Outpatient [facility] n [id number] 00:00:00 00:00:00 [facility] Oncology [facility] 2019-09-07 2019-09-07 Britney Bran [facility] 2 [id number] 00:00:00 00:00:00 Tiffanie Maher [facility] 2019-08-29 2019-08-29 Outpatient [facility] n [id number] 00:00:00 00:00:00 [facility] 2019-07-24 2019-07-24 Outpatient [facility] Adan n [id number] 00:00:00 00:00:00 [facility] 2019-07-10 2019-07-10 Dr. Britney Tan [facility] Adan n [id number] 00:00:00 00:00:00 Nika Maher [facility] 2019-06-30 2019-06-30 Outpatient Britney Adanshayne Adan n [id number] 00:00:00 00:00:00 Nika [facility] 2019-06-02 2019-06-02 Britney Bran [facility] 2 [id number] 00:00:00 00:00:00 Tiffanie Maher [facility] 2019-06-01 2019-06-01 Outpatient Deanna Huerta n [id number] 00:00:00 00:00:00 [facility] 2019-05-30 2019-05-30 Outpatient Nicolas [facility] 6 [id number] 15:45:00 15:45:00 Ryan Strong???s [id number] and [id number] Multispecial [id number] ty Clini 2019-05-22 2019-05-22 Outpatient Deanna Huerta n [id number] 00:00:00 00:00:00 [facility] 2019-05-16 2019-05-16 Outpatient Deanna Huerta n [id number] 00:00:00 00:00:00 [facility] 2019-03-30 2019-03-30 Outpatient Deanna Huerta [id number] 00:00:00 00:00:00 [facility] 2019-02-09 2019-02-09 Outpatient Nicolas [facility] 6 [id number] 10:00:00 10:00:00 Ryan Strong [id number] s [id number] and [id number] Multispecial ty Clinic, 2018-11-02 2018-11-02 Outpatient Deanna Huerta n [id number] 00:00:00 00:00:00 [facility] 2018-09-13 2018-09-13 Outpatient Deanna Huerta n [id number] 00:00:00 00:00:00 [facility] 2018-09-04 2018-09-04 Outpatient Deanna Huerta n [id number] 00:00:00 00:00:00 [facility] 2017-06-29 2017-06-29 Outpatient Nicolas, [facility] 8 [id number] 16:00:00 16:00:00 Ryan Strong [id number] s [id number] and [id number] Multispecial [facility] [place] 2013-07-07 2013-07-07 Outpatient [facility] n [id number] 00:00:00 00:00:00 n [facility] 2013-06-07 2013-06-07 Outpatient [facility] n [id number] 00:00:00 00:00:00 n [facility] Oncology [facility] [place] Social History Smoking Status Start Date Stop Date Current every day smoker 2020-01-09 00:00:00 2020-01-09 00:0 0:00 Social History Observation Description Sex Female Vital Signs Vital Name Observation Time Observation Value Comments BMI 2020-01-09 10:40:30 16.0700 BP lopez 2020-01-09 10:40:30 78.0000 mm[Hg] Bdy height 2020-01-09 10:40:30 64.0000 [in_i] SaO2% BldA PulseOx 2020-01-09 10:40:30 94.0000 % Heart rate 2020-01-09 10:40:30 82.0000 /min Resp rate 2020-01-09 10:40:30 20.0000 /min BP sys 2020-01-09 10:40:30 134.0000 mm[Hg] Body temperature 2020-01-09 10:40:30 97.2000 [degF] Weight 2020-01-09 10:40:30 93.6000 [lb_av] BMI 2019-09-07 13:32:48 15.3100 BP lopez 2019-09-07 13:32:48 50.0000 mm[Hg] Bdy height 2019-09-07 13:32:48 64.0000 [in_i] Heart rate 2019-09-07 13:32:48 82.0000 /min Resp rate 2019-09-07 13:32:48 16.0000 /min BP sys 2019-09-07 13:32:48 87.0000 mm[Hg] Body temperature 2019-09-07 13:32:48 99.2000 [degF] Weight 2019-09-07 13:32:48 89.2000 [lb_av] Heart rate 2019-07-10 10:11:48 83.0000 /min Resp rate 2019-07-10 10:11:48 19.0000 /min BP sys 2019-07-10 10:11:48 104.0000 mm[Hg] Body temperature 2019-07-10 10:11:48 98.7000 [degF] Weight 2019-07-10 10:11:48 89.6000 [lb_av] BMI 2019-07-10 10:11:48 15.3800 BP lopez 2019-07-10 10:11:48 52.0000 mm[Hg] Bdy height 2019-07-10 10:11:48 64.0000 [in_i] SaO2% BldA PulseOx 2019-07-10 10:11:48 94.0000 % BMI 2019-06-02 13:37:14 15.7600 BP lopez 2019-06-02 13:37:14 63.0000 mm[Hg] Bdy height 2019-06-02 13:37:14 64.0000 [in_i] SaO2% BldA PulseOx 2019-06-02 13:37:14 97.0000 % Heart rate 2019-06-02 13:37:14 89.0000 /min Resp rate 2019-06-02 13:37:14 18.0000 /min BP sys 2019-06-02 13:37:14 94.0000 mm[Hg] Body temperature 2019-06-02 13:37:14 98.7000 [degF] Weight 2019-06-02 13:37:14 91.8000 [lb_av]
== END ==
LOC: WI 09:35
PROVIDERS: ATTEND Internal Medicine Hematology & Oncology
DX: C44.319 Basal cell carcinoma of skin of other parts of face (principal); J43.2 Centrilobular emphysema; R91.1 Solitary pulmonary nodule; Z85.118 Personal history of other malignant neoplasm of bronchus and lung
CPT/HCPCS: 71260; 82565